=== PATIENT | female | born 1990 | race Caucasian/White ===

== ENCOUNTER 2020-09-01 16:03 | Emergency (ER) | payer BC ==
[2020-09-01] MEDS ORDERED: Alum Hydrox/Mag Hydrox/Simeth 15 ML, Lidocaine 2% 15 ML PO ONE ×4 (16:41→19:54)
--- NOTE | 2020-09-01 16:41 | EDM.PDOC ---
<Alexandrea Norman - Last Filed: 09/01/20 18:48> ED HPI GENERAL MEDICAL PROBLEM - General Chief Complaint: Abdominal Pain Stated Complaint: VIA [facility] Time Seen by Provider: 09/01/20 16:20 Source of Information: Reports: Patient History Limitations: Reports: No Limitations - History of Present Illness INITIAL COMMENTS - FREE TEXT/NARRATIVE: 30 year old female presents with abdominal pain, nausea and vomiting. Her symptoms started today around noon. Reports drinking alcohol last night at [employer] [facility]. She reports 4 episodes of vomiting with abdominal pain that feels like "acid reflux". She has a history of a similar event after drinking a couple months ago but reports feeling better after 1 episode of vomiting. She states that she is worried she has an ulcer because the vomiting has not relieved her symptoms. She does not have history of ulcers, does not have history of pancreatitis, does not have hematemesis. No fever. She is not tachycardic and is normotensive. Onset: Today Onset Date: 09/01/20 Onset Time: 12:00 Duration: Hour(s): Location: Reports: Abdomen Quality: Reports: Burning Severity: Moderate Improves with: Reports: None Worsens with: Reports: Eating Context: Reports: Other (after drinking alcohol last night at [employer]) Associated Symptoms: Reports: Nausea/Vomiting - Related Data Allergies Allergy/AdvReac Type Severity Reaction Status Date / Time cefaclor [From Ceclor] AdvReac Swelling Verified 09/01/20 16:09 ciprofloxacin [From Cipro] AdvReac Hives Verified 09/01/20 16:09 Home Meds: Home Meds Escitalopram Oxalate [Lexapro] 10 mg PO DAILY 09/01/20 [History] Gabapentin [Neurontin] 300 mg PO DAILY 09/01/20 [History] LORazepam [Lorazepam] 0.5 mg PO ASDIRECTED 09/01/20 [History] traZODone 50 mg PO BEDTIME 09/01/20 [History] Past Medical History HEENT History: Reports: Impaired Vision Musculoskeletal History: Reports: Back Pain, Chronic, Other (See Below) Psychiatric History: Reports: Anxiety, Depression, Panic Attack, PTSD Endocrine/Metabolic History: Reports: Obesity/BMI 30+ - Infectious Disease History Infectious Disease History: Reports: Chicken Pox - Past Surgical History Head Surgeries/Procedures: Reports: None HEENT Surgical History: Reports: None Endocrine Surgical History: Reports: None Musculoskeletal Surgical History: Reports: None Dermatological Surgical History: Reports: None Social & Family History - Tobacco Use Tobacco Use Status *Q: Current Every Day Tobacco User Years of Tobacco use: 15 Packs/Tins Daily: 0.3 Used Tobacco, but Quit: No Second Hand Smoke Exposure: No - Caffeine Use Caffeine Use: Reports: Soda - Recreational Drug Use Recreational Drug Use: No ED ROS GENERAL - Review of Systems Review Of Systems: See Below Constitutional: Reports: No Symptoms HEENT: Reports: No Symptoms Respiratory: Reports: No Symptoms. Denies: Shortness of Breath, Wheezing Cardiovascular: Reports: No Symptoms. Denies: Chest Pain, Edema, Lightheadedness Endocrine: Reports: No Symptoms. Denies: Fatigue GI/Abdominal: Reports: Abdominal Pain, Nausea, Vomiting. Denies: Diarrhea, Hematemesis : Reports: No Symptoms. Denies: Flank Pain, Hematuria Musculoskeletal: Reports: No Symptoms. Denies: Neck Pain, Shoulder Pain Skin: Reports: No Symptoms. Denies: Diaphoresis Neurological: Reports: No Symptoms Psychiatric: Reports: No Symptoms Hematologic/Lymphatic: Reports: No Symptoms Immunologic: Reports: No Symptoms ED EXAM, GI/ABD - Physical Exam Exam: See Below Exam Limited By: No Limitations General Appearance: Alert, WD/WN, No Apparent Distress Ears: Normal External Exam Nose: Normal Inspection, No Blood Throat/Mouth: Normal Inspection, Normal Lips, Normal Teeth Head: Atraumatic Neck: Normal Inspection, Non-Tender Respiratory/Chest: No Respiratory Distress, Lungs Clear, Normal Breath Sounds, No Accessory Muscle Use. No: Respiratory Distress, Crackles, Rales, Rhonchi, Wheezing Cardiovascular: Normal Peripheral Pulses, Regular Rate, Rhythm, No Edema. No: Tachycardia GI/Abdominal Exam: Normal Bowel Sounds, Soft, Tender. No: Distended, Rigid (Female) Exam: Deferred Rectal (Female) Exam: Deferred Back Exam: Normal Inspection, Full Range of Motion Extremities: Normal Inspection, Normal Range of Motion, Non-Tender. No: Pedal Edema Neurological: Alert, Oriented, Normal Cognition. No: Confused Psychiatric: Normal Affect, Normal Mood Skin Exam: Warm, Dry, Intact, Normal Color, No Rash Lymphatic: No Adenopathy Course - Vital Signs Text/Narrative:: CBC, CMP, Lipase ordered. Patient is agreeable to taking a GI cocktail. - Re-Assessments/Exams Free Text/Narrative Re-Assessment/Exam: 09/01/20 18:48 patient reports mild improvement of nausea and abdominal pain after GI cocktail. Lab could not get blood initially so hydrated with 1L NS. Labs obtained now and results pending. Departure - Departure Disposition: Home, Self-Care 01 Clinical Impression: GERD (gastroesophageal reflux disease), Dehydration - Discharge Information Instructions: Gastroesophageal Reflux Disease, Adult, [id number] Referrals: PCP,None [Primary Care Provider] - Forms: ED Department Discharge Care Plan Goals: push fluids, lite diet, prilosec 20 mg bid for 1 week then 1 tab lucio. See regular Dr and be reevaluate. She may need a gastroscope and US of upper abdoman. [place] 5/325 q6h for pain # 6. Sepsis Event Note (ED) - Evaluation Sepsis Screening Result: No Definite Risk <Victorina Sandoval - Last Filed: 09/01/20 23:05> Course - Re-Assessments/Exams Free Text/Narrative Re-Assessment/Exam: 09/01/20 22:48 Pt ended up with 2 liters of fluid. She was given protonix 40 mg iv. She was given a second gi cocktail. She is much more comfortable rating her discomfort at t a 3. Her lipase and amylase was normal. Her liver enzymes were normal. Pt did eat some jello and did tolerate that. Departure - Departure Time of Disposition: 22:50 Condition: Fair <Anderson King - Last Filed: 09/02/20 11:10> Course - Vital Signs Last Recorded V/S: Last Vital Signs Temp 97 F 09/01/20 16:11 Pulse 78 09/01/20 19:49 Resp 16 09/01/20 16:11 BP 124/74 09/01/20 19:49 Pulse Ox 94 L 09/01/20 19:49 - Orders/Labs/Meds Labs: Laboratory Tests 09/01/20 09/01/20 09/01/20 Range/Units 18:40 18:40 18:40 WBC 19.2 H (4.5-11.0) K/uL RBC 5.08 (3.30-5.50) M/uL Hgb 15.3 H (12.0-15.0) g/dL Hct 44.8 (36.0-48.0) % MCV 88 (80-98) fL MCH 30 (27-31) pg MCHC 34 (32-36) % Plt Count 252 (150-400) K/uL Neut % (Auto) 91.2 H (36-66) % Lymph % (Auto) 5.4 L (24-44) % [place] % (Auto) 3.1 (2-6) % Eos % (Auto) 0.2 L (2-4) % Baso % (Auto) 0.1 (0-1) % Sodium 140 (140-148) mmol/L Potassium 4.3 (3.6-5.2) mmol/L Chloride 107 (100-108) mmol/L Carbon Dioxide 21 (21-32) mmol/L Anion Gap 12.2 (5.0-14.0) mmol/L BUN 12 (7-18) mg/dL Creatinine 0.8 (0.6-1.0) mg/dL Est Cr Clr Drug Dosing 90.84 mL/min Estimated GFR (MDRD) > 60 (>60) Glucose 95 (74-106) mg/dL Calcium 7.9 L (8.5-10.1) mg/dL Total Bilirubin 1.0 (0.2-1.0) mg/dL AST 15 (15-37) U/L ALT 23 (12-78) U/L Alkaline Phosphatase 65 (46-116) U/L C-Reactive Protein 0.63 H (0.0-0.3) mg/dL Total Protein 6.1 L (6.4-8.2) g/dL Albumin 3.3 L (3.4-5.0) g/dL Globulin 2.8 (2.3-3.5) g/dL Albumin/Globulin Ratio 1.2 (1.2-2.2) Lipase 46 L (73-393) U/L Meds: Medications Discontinued Medications Generic Name Dose Route Start Last Admin Trade Name Nehemiahq PRN Reason Stop Dose Admin Acetaminophen 650 mg 09/01/20 20:41 09/01/20 20:48 Acetaminophen 325 Mg Tab PO 09/01/20 20:42 650 mg NOW ONE Administration Al Hydroxide/Mg Hydroxide 15 0 ml 09/01/20 16:41 09/01/20 16:46 ml/ Lidocaine HCl 15 ml PO 09/01/20 16:42 15 ml ONETIME ONE Administration Al Hydroxide/Mg Hydroxide 15 0 ml 09/01/20 19:54 09/01/20 20:24 ml/ Lidocaine HCl 15 ml PO 09/01/20 19:55 30 ml ONETIME ONE Administration Sodium Chloride 1,000 mls @ 999 mls/hr 09/01/20 18:00 09/01/20 18:05 Normal Saline IV 999 mls/hr ASDIRECTED MARYBEL Administration Sodium Chloride 1,000 mls @ 999 mls/hr 09/01/20 19:45 09/01/20 20:10 Normal Saline IV 999 mls/hr ASDIRECTED MARYBEL Administration Pantoprazole Sodium 40 mg 09/01/20 19:54 09/01/20 20:23 Pantoprazole 40 Mg Vial IVPUSH 09/01/20 19:55 40 mg ONETIME ONE Administration Attestation - Student - Attestation Statement Attestation Statement: I personally performed or re-performed the physical examination and medical decision making. I have verified all student documentation or findings, including history, physical exam and/or medical decision making.
[2020-09-01] MEDS ORDERED: Sodium Chloride 0.9% 1,000 ML IV SCH ×2 (18:00→19:45)
[2020-09-01] MEDS ORDERED: Pantoprazole 40 MG Vial IVPUSH ONE (19:54)
[2020-09-01] MEDS ORDERED: Acetaminophen 325 MG Tab PO ONE (20:41)
== END 2020-09-01 23:16 | disposition home or self-care (01) ==
LOC: JP.ED 16:03 → EDBD 16:03 → JP.ED 23:16
DX: E86.0 Dehydration (principal); K21.9 Gastro-esophageal reflux disease without esophagitis; E66.9 Obesity, unspecified; Z68.31 Body mass index [BMI] 31.0-31.9, adult; Z72.0 Tobacco use; Z88.1 Allergy status to other antibiotic agents; Z79.899 Other long term (current) drug therapy
CPT/HCPCS: 36415; 80053; 83690; 85025; 86140; 96374; 99284; A9270; C9113; J7030